=== PATIENT | male | born 1950 | race Caucasian/White ===

== ENCOUNTER → 2017-07-30 | Outpatient (CLI) | payer MEDICARE ==
--- NOTE | 2017-08-01 21:29 | MR ---
EXAMINATION TYPE: MR brain wo con DATE OF EXAM: 07/30/2017 COMPARISON: NONE HISTORY: 66-year-old male memory loss TECHNIQUE: Multiplanar, multisequence images of the brain and brainstem were acquired without IV con trast. Diffusion weighted imaging is performed. FINDINGS: No evidence for acute infarction, hemorrhage, mass, mass effect, midline shift, herniation, effacemen t of basal cisterns, or extra-axial fluid collection. There is moderate generalized supratentorial volume loss. Secondary mild prominence to the ventricula r system. T2/FLAIR weighted sequences show mild scattered burden of right white matter change in the subcortica l and deep white matter of both cerebral hemispheres. Major intracranial flow voids are intact. Midline structures demonstrate normal morphology. The craniocervical junction is normal. There is mild pansinus mucosal thickening. Globes are intact. Leftward nasal septal deviation. IMPRESSION: 1. No acute intracranial abnormality seen. 2. Moderate cerebral atrophy and mild scattered burden of T2 bright white matter change which is nons pecific but likely relates to chronic small vessel ischemic disease. 3. Mild chronic pansinus disease. Chronic T2 bright white matter changes as described above.
== END | disposition home or self-care (01) ==
LOC: RADMRIMAIN 11:00
PROVIDERS: ATTEND Nurse Practitioner Acute Care
DX: G31.9 Degenerative disease of nervous system, unspecified (principal); R90.89 Other abnormal findings on diagnostic imaging of central nervous system
CPT/HCPCS: 70551